=== PATIENT | female | born 1985 | race Caucasian/White ===

== ENCOUNTER 2019-05-26 07:48 | Emergency (ER) | payer MEDICAID, OTHER ==
[~2019-05-26] VITALS: Ht 157.5 cm; Wt 64.0 kg
[2019-05-26 08:23] LABS: BASOPHILS % (AUTO) 0.3 % (0-1); EOSINOPHILS % (AUTO) 0 % (0-6); HEMATOCRIT 35.6 % (35.0-45.0); HEMOGLOBIN 11.6 g/dl (12.0-16.0); LYMPHOCYTES # (AUTO) 0.7 X10'3 (1.1-4.8); LYMPHOCYTES % (AUTO) 4.6 % (21-51); MEAN CORPUSCULAR HEMOGLOBIN 28.1 PG (27.0-31.0); MEAN CORPUSCULAR HGB CONC 32.5 g/dL (33.0-36.5); MEAN CORPUSCULAR VOLUME 86.4 FL (78-98); MEAN PLATELET VOLUME 6.8 FL (7.4-10.4); MONOCYTES # (AUTO) 0.4 X10'3 (0-0.9); MONOCYTES % (AUTO) 2.4 % (2-12); NEUTROPHILS # (AUTO) 14.7 X10'3 (1.8-7.7); NEUTROPHILS % (AUTO) 92.7 % (42-75); PLATELET COUNT 392 X10'3 (140-440); RED BLOOD COUNT 4.12 X10'6 (4.20-5.60); WHITE BLOOD COUNT 15.9 X10'3 (4.5-11.0)
[2019-05-26] MEDS ORDERED: ondansetron/PF 4mg/2ml inj IV ONE (08:35)
[2019-05-26 08:37] LABS: ALANINE AMINOTRANSFERASE 26 U/L (12-78); ALBUMIN 4.1 G/DL (3.4-5.0); ALKALINE PHOSPHATASE 84 IU/L (46-116); AMYLASE 73 U/L (25-115); ANION GAP 15 (8-16); ASPARTATE AMINO TRANSFERASE 26 U/L (10-37); BILIRUBIN,TOTAL 0.4 MG/DL (0.1-1.0); BLOOD UREA NITROGEN 8 MG/DL (7-18); BUN/CREATININE RATIO 9.1 (6.6-38.0); CHLORIDE 98 MMOL/L (99-107); CREATININE 0.88 MG/DL (0.40-0.90); GLUCOSE 145 MG/DL (70-104); LIPASE 67 U/L (73-393); POTASSIUM 3.7 MMOL/L (3.5-5.1); SODIUM 135 MMOL/L (135-145); TOTAL CARBON DIOXIDE 21.7 MMOL/L (24-32); TOTAL PROTEIN 8.4 G/DL (6.4-8.2); eGFR 74 ML/MIN
[2019-05-26 08:42] LABS: CALCIUM 9.1 MG/DL (8.5-10.1)
--- NOTE | 2019-05-26 09:01 | NUR ---
PT STATES SHE IS NOT ABLE TO VOID AT THIS TIME
[2019-05-26] MEDS ORDERED: LORazepam 1 MG tablet PO ONE (09:35)
--- NOTE | 2019-05-26 09:55 | NUR ---
pt is laying supine, eyes closed quietly snoring
[2019-05-26 10:01] LABS: URINE HCG POSITIVE (NEG)
[2019-05-26 10:02] LABS: CLARITY,URINE CLOUDY (Clear); COLOR,URINE YELLOW (Yellow); GLUCOSE, URINE NEGATIVE (Neg); KETONES,URINE >=80 mg/dl (Neg); LEUKOCYTE ESTERASE ,URINE NEGATIVE (Neg); NITRITES, URINE NEGATIVE (Neg); OCCULT BLOOD,URINE NEGATIVE (Neg); PH,URINE 6.5 (4.8-8.0); PROTEIN,URINE TRACE mg/dl (Neg); UA COLLECTION TYPE CLN CATCH MIDSTREAM; UROBILINOGEN,URINE 0.2 E.U/dL (0.2-1.0)
[2019-05-26 10:07] LABS: BACTERIA,URINE FEW /HPF (Neg); MUCUS STRANDS MANY /LPF (Neg); SQUAMOUS EPITHELIAL CELL,UR MANY /LPF (FEW); WBC,URINE 0-4 /HPF (0-4)
--- NOTE | 2019-05-26 11:07 | NUR ---
PATIENT'S : [facility] [phone]
[2019-05-26] MEDS ORDERED: normal saline 1000ML IV soln IVB ONE (12:05)
[2019-05-26 12:09] LABS: BETA HCG,QUANTITATIVE 6373 mIU/ml
[2019-05-26] MEDS ORDERED: ONDA4TAB6 PO (12:19)
[2019-05-26 13:34] VITALS: BP 114/55
== END 2019-05-26 13:38 | disposition home or self-care (01) ==
LOC: ER 07:49
DX: O26.891 Other specified pregnancy related conditions, first trimester (principal); O99.341 Other mental disorders complicating pregnancy, first trimester; R10.32 Left lower quadrant pain; R10.31 Right lower quadrant pain; R11.10 Vomiting, unspecified; F41.8 Other specified anxiety disorders; Z3A.01 Less than 8 weeks gestation of pregnancy; Z79.899 Other long term (current) drug therapy
CPT/HCPCS: 36415; 76805; 80053; 81001; 81025; 82150; 83690; 84702; 85025; 85610; 96361; 96374; 99284; J2405; J7030

== ENCOUNTER 2022-01-03 21:45 | Emergency (ER) | payer MEDICAID ==
[~2022-01-03] VITALS: Ht 167.6 cm; Wt 61.0 kg
[~2022-01-03 21:45] MED LIST: ONDA4TAB6 PO
[2022-01-03 21:57] VITALS: BP 121/80
== END 2022-01-03 22:01 ==
LOC: ER 21:45
DX: S50.811A Abrasion of right forearm, initial encounter (principal); F10.129 Alcohol abuse with intoxication, unspecified; F41.9 Anxiety disorder, unspecified; Z98.890 Other specified postprocedural states; Z79.899 Other long term (current) drug therapy; Z72.89 Other problems related to lifestyle; Y90.9 Presence of alcohol in blood, level not specified; V98.8XXA Other specified transport accidents, initial encounter; Y93.89 Activity, other specified; Y92.488 Other paved roadways as the place of occurrence of the external cause; Y99.8 Other external cause status
CPT/HCPCS: 99283